=== PATIENT | male | born 1965 | race Caucasian/White ===

== ENCOUNTER 2017-12-15 11:20 | Inpatient (IN) | payer MEDICAID, OTHER ==
[~2017-12-15] VITALS: Ht 162.6 cm; Wt 55.3 kg
[~2017-12-15 11:20] MED LIST: CLOT15CR5 TP
[2017-12-15] MEDS ORDERED: ibuprofen tablet 400 MG TABLET PO ONE (12:40)
[2017-12-15] MEDS ORDERED: ondansetron 4mg rapidly disintigrating tab PO ONE (12:40)
[2017-12-15 13:01] LABS: BASOPHILS % (AUTO) 0.3 % (0-1); EOSINOPHILS # (AUTO) 0.1 X10'3 (0-0.9); EOSINOPHILS % (AUTO) 2.1 % (0-6); HEMATOCRIT 32.7 % (42.0-52.0); HEMOGLOBIN 11.6 g/dl (14.0-17.9); LYMPHOCYTES # (AUTO) 0.6 X10'3 (1.1-4.8); LYMPHOCYTES % (AUTO) 17.3 % (21-51); MEAN CORPUSCULAR HEMOGLOBIN 32.5 PG (27.0-31.0); MEAN CORPUSCULAR HGB CONC 35.6 % (33.0-36.5); MEAN CORPUSCULAR VOLUME 91.3 FL (78-98); MEAN PLATELET VOLUME 7.4 FL (7.4-10.4); MONOCYTES # (AUTO) 0.4 X10'3 (0-0.9); NEUTROPHILS # (AUTO) 2.3 X10'3 (1.8-7.7); NEUTROPHILS % (AUTO) 69.3 % (42-75); PLATELET COUNT 143 X10'3 (140-440); RED BLOOD COUNT 3.58 X10'6 (4.70-6.10); RED CELL DISTRIBUTION WIDTH 13.5 % (11.5-14.5); WHITE BLOOD COUNT 3.3 X10'3 (4.5-11.0)
[2017-12-15 13:23] LABS: ALANINE AMINOTRANSFERASE 110 U/L (12-78); ALBUMIN 2.6 G/DL (3.4-5.0); ALBUMIN/GLOBULIN RATIO 0.8 (1.1-1.5); ALKALINE PHOSPHATASE 144 IU/L (46-116); ANION GAP 3 (8-16); ASPARTATE AMINO TRANSFERASE 57 U/L (10-37); BILIRUBIN,TOTAL 0.6 MG/DL (0.1-1.0); BLOOD UREA NITROGEN 16 MG/DL (7-18); BUN/CREATININE RATIO 14.3 (5.4-32.0); CALCIUM 8.2 MG/DL (8.5-10.1); CHLORIDE 97 MMOL/L (99-107); CREATININE 1.12 MG/DL (0.60-1.10); LIPASE 681 U/L (73-393); POTASSIUM 3.9 MMOL/L (3.5-5.1); SODIUM 129 MMOL/L (135-145); TOTAL CARBON DIOXIDE 28.8 MMOL/L (24-32); eGFR 68 ML/MIN
[2017-12-15 13:31] LABS: GLUCOSE 570 MG/DL (70-104)
[2017-12-15] MEDS ORDERED: insulin regular, human 10 units/0.1 ml syringe IV ONE ×2 (13:40→14:30)
[2017-12-15] MEDS ORDERED: normal saline 1000ML IV soln IVB ONE ×3 (13:40→14:30)
[2017-12-15 13:56] LABS: ETHANOL < 0.010 GM/DL (0.0-0.010)
[2017-12-15] MEDS ORDERED: potassium Cl 20 mEq SR tablet PO STA (14:29)
[2017-12-15] MEDS ORDERED: bisacodyl 5mg tablet.DR PO ONE (14:30)
[2017-12-15] MEDS ORDERED: proMETHazine 25mg tablet PO ONE (14:30)
[2017-12-15 14:31] LABS: CLARITY,URINE CLEAR (Clear); COLOR,URINE YELLOW (Yellow); GLUCOSE, URINE >=1000 mg/dl (Neg); KETONES,URINE NEGATIVE (Neg); LEUKOCYTE ESTERASE ,URINE NEGATIVE (Neg); NITRITES, URINE NEGATIVE (Neg); OCCULT BLOOD,URINE NEGATIVE (Neg); PH,URINE 5.5 (4.8-8.0); PROTEIN,URINE NEGATIVE (Neg); UROBILINOGEN,URINE 0.2 E.U/dL (0.2-1.0)
[2017-12-15 14:33] LABS: UA COLLECTION TYPE CLN CATCH MIDSTREAM
[2017-12-15 14:40] LABS: BACTERIA,URINE NONE SEEN /HPF (Neg); RBC,URINE 0-2 /HPF (0-2); SQUAMOUS EPITHELIAL CELL,UR FEW /LPF (FEW); WBC,URINE 0-4 /HPF (0-4)
[2017-12-15 15:09] LABS: URINE AMPHETAMINE SCREEN NEGATIVE (Neg); URINE BARBITUATE SCREEN NEGATIVE (Neg); URINE BENZODIAZEPINES SCREEN NEGATIVE (Neg); URINE CANNABINOID SCREEN POSITIVE (Neg); URINE COCAINE SCREEN NEGATIVE (Neg); URINE METHADONE SCREEN NEGATIVE (Neg); URINE OPIATE SCREEN NEGATIVE (Neg); URINE PHENCYCLIDINE SCREEN NEGATIVE (Neg)
[2017-12-15] MEDS: normal saline 1000ml 1,000 ML IV SCH ×2 (15:21→21:35)
[2017-12-15] MEDS ORDERED: acetaminophen 650mg rectal suppository RC PRN (15:25)
[2017-12-15] MEDS ORDERED: ondansetron/PF 4mg/2ml inj IV PRN (15:25)
[2017-12-15] MEDS ORDERED: acetaminophen 325mg tablet PO PRN (15:25)
[2017-12-15] MEDS ORDERED: bisacodyl 10mg suppository rectal RC PRN (15:25)
[2017-12-15] MEDS ORDERED: diphenhydrAMINE 25mg capsule PO PRN (15:25)
[2017-12-15] MEDS ORDERED: metoclopramide 5 mg/ml inj IV PRN (15:25)
[2017-12-15] MEDS ORDERED: magnesium hydroxide 30ml (MOM) UD suspension PO PRN (15:25)
[2017-12-15] MEDS ORDERED: HYDROcodone/acetaminophen 5mg/325mg tablet PO PRN (15:25)
[2017-12-15] MEDS ORDERED: morphine 4 MG/ML inj SYRINge IV PRN (15:25)
[2017-12-15] MEDS ORDERED: HYDROmorphone inj. 0.5 MG/0.5 ML DISP.SYRIN IV PRN ×2 (15:25)
[2017-12-15] MEDS ORDERED: mag hydrox/Alum hydrox/simeth 30ml oral suspension PO PRN (15:25)
[2017-12-15] MEDS ORDERED: diphenhydrAMINE 50 mg/ml inj IV PRN (15:25)
[2017-12-15] MEDS ORDERED: dextrose 50%-water 50ml dispensing syringe IV PRN ×2 (15:35)
[2017-12-15] MEDS ORDERED: glucagon, human recombinant 1mg kit SUBCUT PRN (15:35)
[2017-12-15] MEDS ORDERED: MESSAGE TO PHARMACY PO ONE (15:35)
[2017-12-15] MEDS ORDERED: dextrose ORAL solution 15 GM/59 ML bottle PO PRN (15:35)
[2017-12-15 16:03] LABS: MAGNESIUM 1.7 MG/DL (1.5-2.4); PHOSPHORUS 2.8 MG/DL (2.3-4.5)
[2017-12-15] MEDS: morphine 4 MG/ML inj SYRINge IV PRN (17:19)
[2017-12-15] MEDS: docusate sod 100mg capsule PO SCH (20:00)
[2017-12-15] MEDS: pantoprazole 40 MG vial IV SCH (20:39)
[2017-12-15] MEDS: heparin, porcine 5000 units/ml vial SQ SCH (20:40)
[2017-12-15] MEDS ORDERED: temazepam 15mg capsule PO PRN (21:00)
[2017-12-15 21:05] VITALS: BP 137/73
[2017-12-16] VITALS: BP 128/69
[2017-12-16] MEDS: morphine 4 MG/ML inj SYRINge IV PRN ×4 (00:28→18:49)
[2017-12-16 05:34] LABS: BASOPHILS % (AUTO) 0.5 % (0-1); EOSINOPHILS # (AUTO) 0.1 X10'3 (0-0.9); EOSINOPHILS % (AUTO) 3.1 % (0-6); HEMATOCRIT 33.4 % (42.0-52.0); HEMOGLOBIN 11.5 g/dl (14.0-17.9); LYMPHOCYTES % (AUTO) 37.7 % (21-51); MEAN CORPUSCULAR HEMOGLOBIN 32.2 PG (27.0-31.0); MEAN CORPUSCULAR HGB CONC 34.5 % (33.0-36.5); MEAN CORPUSCULAR VOLUME 93.4 FL (78-98); MEAN PLATELET VOLUME 7.8 FL (7.4-10.4); MONOCYTES # (AUTO) 0.2 X10'3 (0-0.9); MONOCYTES % (AUTO) 8.2 % (2-12); NEUTROPHILS # (AUTO) 1.3 X10'3 (1.8-7.7); NEUTROPHILS % (AUTO) 50.5 % (42-75); PLATELET COUNT 114 X10'3 (140-440); RED BLOOD COUNT 3.58 X10'6 (4.70-6.10); RED CELL DISTRIBUTION WIDTH 13.6 % (11.5-14.5); WHITE BLOOD COUNT 2.6 X10'3 (4.5-11.0)
[2017-12-16] MEDS: HYDROcodone/acetaminophen 10/325mg tab PO PRN ×2 (05:43→14:49)
[2017-12-16 06:19] LABS: ALANINE AMINOTRANSFERASE 94 U/L (12-78); ALBUMIN 2.2 G/DL (3.4-5.0); ALBUMIN/GLOBULIN RATIO 0.7 (1.1-1.5); ALKALINE PHOSPHATASE 114 IU/L (46-116); ANION GAP 4 (8-16); ASPARTATE AMINO TRANSFERASE 58 U/L (10-37); BILIRUBIN,TOTAL 0.4 MG/DL (0.1-1.0); BLOOD UREA NITROGEN 9 MG/DL (7-18); BUN/CREATININE RATIO 13.2 (5.4-32.0); CALCIUM 7.9 MG/DL (8.5-10.1); CHLORIDE 110 MMOL/L (99-107); CHOL/HDL RATIO 4.8 (0.00-4.99); CHOLESTEROL 116 MG/DL (0-200); CREATININE 0.68 MG/DL (0.60-1.10); GLUCOSE 147 MG/DL (70-104); HDL CHOLESTEROL 24 MG/DL (35-60); LDL CHOLESTEROL 75 MG/DL (50-100); LIPASE 269 U/L (73-393); SODIUM 141 MMOL/L (135-145); TOTAL CARBON DIOXIDE 26.9 MMOL/L (24-32); TOTAL PROTEIN 5.3 G/DL (6.4-8.2); TRIGLYCERIDES 98 MG/DL (20-135); eGFR > 90 ML/MIN
[2017-12-16 06:31] LABS: ANISOCYTOSIS 1+; PLATELET ESTIMATE DECREASED; TOTAL CELLS COUNTED 100
[2017-12-16 07:00] VITALS: BP 149/82
[2017-12-16] MEDS: docusate sod 100mg capsule PO SCH ×2 (08:46→20:00)
[2017-12-16] MEDS: normal saline 1000ml 1,000 ML IV SCH ×2 (08:46→21:21)
[2017-12-16] MEDS: heparin, porcine 5000 units/ml vial SQ SCH ×2 (08:46→19:55)
[2017-12-16] MEDS: pantoprazole 40 MG vial IV SCH ×2 (08:46→19:55)
[2017-12-16 11:00] VITALS: BP 138/73
[2017-12-16] MEDS: lactulose 20gm/30ml cup PO SCH ×3 (12:26→19:55)
[2017-12-16] MEDS: insulin Lispro (HumaLOG) vial - multi-dose SQ SCH ×2 (13:59→18:48)
[2017-12-16 20:00] VITALS: BP 133/77
[2017-12-17] VITALS: BP 142/79
[2017-12-17] MEDS: morphine 4 MG/ML inj SYRINge IV PRN ×3 (00:07→18:51)
[2017-12-17] MEDS: HYDROcodone/acetaminophen 10/325mg tab PO PRN ×2 (01:50→23:05)
[2017-12-17] MEDS: lactulose 20gm/30ml cup PO SCH ×4 (02:00→20:00)
[2017-12-17] MEDS: normal saline 1000ml 1,000 ML IV SCH ×2 (04:27→14:43)
[2017-12-17 05:12] LABS: BASOPHILS % (AUTO) 0.6 % (0-1); EOSINOPHILS # (AUTO) 0.1 X10'3 (0-0.9); EOSINOPHILS % (AUTO) 2.4 % (0-6); HEMATOCRIT 36.2 % (42.0-52.0); HEMOGLOBIN 12.4 g/dl (14.0-17.9); LYMPHOCYTES % (AUTO) 25.4 % (21-51); MEAN CORPUSCULAR HEMOGLOBIN 32.2 PG (27.0-31.0); MEAN CORPUSCULAR HGB CONC 34.1 % (33.0-36.5); MEAN CORPUSCULAR VOLUME 94.4 FL (78-98); MEAN PLATELET VOLUME 8.3 FL (7.4-10.4); MONOCYTES # (AUTO) 0.3 X10'3 (0-0.9); MONOCYTES % (AUTO) 7.4 % (2-12); NEUTROPHILS # (AUTO) 2.6 X10'3 (1.8-7.7); NEUTROPHILS % (AUTO) 64.2 % (42-75); PLATELET COUNT 137 X10'3 (140-440); RED BLOOD COUNT 3.84 X10'6 (4.70-6.10); RED CELL DISTRIBUTION WIDTH 13.6 % (11.5-14.5)
[2017-12-17 06:21] LABS: ALANINE AMINOTRANSFERASE 98 U/L (12-78); ALBUMIN 2.3 G/DL (3.4-5.0); ALBUMIN/GLOBULIN RATIO 0.7 (1.1-1.5); ALKALINE PHOSPHATASE 117 IU/L (46-116); ANION GAP 6 (8-16); ASPARTATE AMINO TRANSFERASE 69 U/L (10-37); BILIRUBIN,TOTAL 0.3 MG/DL (0.1-1.0); BLOOD UREA NITROGEN 12 MG/DL (7-18); BUN/CREATININE RATIO 13.8 (5.4-32.0); CHLORIDE 104 MMOL/L (99-107); CREATININE 0.87 MG/DL (0.60-1.10); GLUCOSE 275 MG/DL (70-104); POTASSIUM 4.2 MMOL/L (3.5-5.1); SODIUM 134 MMOL/L (135-145); TOTAL CARBON DIOXIDE 23.6 MMOL/L (24-32); TOTAL PROTEIN 5.7 G/DL (6.4-8.2); eGFR > 90 ML/MIN
[2017-12-17 07:00] VITALS: BP 119/61
[2017-12-17] MEDS: heparin, porcine 5000 units/ml vial SQ SCH ×2 (07:41→19:00)
[2017-12-17] MEDS: docusate sod 100mg capsule PO SCH ×2 (07:41→20:00)
[2017-12-17] MEDS: pantoprazole 40 MG vial IV SCH ×2 (07:41→19:00)
[2017-12-17] MEDS ORDERED: NORMAL SALINE IV ONE (09:30)
[2017-12-17] MEDS ORDERED: SINCALIDE IV ONE (09:30)
[2017-12-17] MEDS: insulin Lispro (HumaLOG) vial - multi-dose SQ SCH ×3 (09:57→18:58)
[2017-12-17 11:00] VITALS: BP 136/64
[2017-12-17 19:00] VITALS: BP 170/89
[2017-12-18] VITALS: BP 149/85
[2017-12-18] MEDS: normal saline 1000ml 1,000 ML IV SCH ×3 (00:21→23:21)
[2017-12-18] MEDS: lactulose 20gm/30ml cup PO SCH ×4 (02:00→20:00)
[2017-12-18] MEDS: morphine 4 MG/ML inj SYRINge IV PRN ×2 (04:03→20:04)
[2017-12-18 06:09] LABS: BASOPHILS % (AUTO) 0.4 % (0-1); EOSINOPHILS # (AUTO) 0.1 X10'3 (0-0.9); EOSINOPHILS % (AUTO) 2.1 % (0-6); HEMATOCRIT 34.6 % (42.0-52.0); HEMOGLOBIN 11.7 g/dl (14.0-17.9); LYMPHOCYTES # (AUTO) 0.9 X10'3 (1.1-4.8); LYMPHOCYTES % (AUTO) 27.6 % (21-51); MEAN CORPUSCULAR HEMOGLOBIN 31.7 PG (27.0-31.0); MEAN CORPUSCULAR HGB CONC 33.9 % (33.0-36.5); MEAN CORPUSCULAR VOLUME 93.6 FL (78-98); MEAN PLATELET VOLUME 8.2 FL (7.4-10.4); MONOCYTES # (AUTO) 0.3 X10'3 (0-0.9); MONOCYTES % (AUTO) 8.4 % (2-12); NEUTROPHILS # (AUTO) 1.9 X10'3 (1.8-7.7); NEUTROPHILS % (AUTO) 61.5 % (42-75); PLATELET COUNT 100 X10'3 (140-440); WHITE BLOOD COUNT 3.1 X10'3 (4.5-11.0)
[2017-12-18 06:28] LABS: ALANINE AMINOTRANSFERASE 79 U/L (12-78); ALBUMIN 2.1 G/DL (3.4-5.0); ALBUMIN/GLOBULIN RATIO 0.7 (1.1-1.5); ALKALINE PHOSPHATASE 101 IU/L (46-116); ANION GAP 3 (8-16); ASPARTATE AMINO TRANSFERASE 56 U/L (10-37); BILIRUBIN,TOTAL 0.3 MG/DL (0.1-1.0); BLOOD UREA NITROGEN 12 MG/DL (7-18); BUN/CREATININE RATIO 15.2 (5.4-32.0); CHLORIDE 107 MMOL/L (99-107); CREATININE 0.79 MG/DL (0.60-1.10); GLUCOSE 156 MG/DL (70-104); POTASSIUM 3.8 MMOL/L (3.5-5.1); SODIUM 136 MMOL/L (135-145); TOTAL PROTEIN 5.3 G/DL (6.4-8.2); eGFR > 90 ML/MIN
[2017-12-18 07:00] VITALS: BP 135/80
[2017-12-18] MEDS: heparin, porcine 5000 units/ml vial SQ SCH ×2 (07:52→20:06)
[2017-12-18] MEDS: docusate sod 100mg capsule PO SCH ×2 (07:52→20:00)
[2017-12-18] MEDS: pantoprazole 40 MG vial IV SCH ×2 (07:54→20:06)
[2017-12-18] MEDS ORDERED: SINCALIDE IV ONE (09:00)
[2017-12-18] MEDS ORDERED: NORMAL SALINE IV ONE (09:00)
[2017-12-18] MEDS: insulin Lispro (HumaLOG) vial - multi-dose SQ SCH ×3 (09:37→21:27)
[2017-12-18 11:00] VITALS: BP 140/80
[2017-12-18] MEDS: HYDROcodone/acetaminophen 10/325mg tab PO PRN (17:43)
[2017-12-18 18:00] VITALS: BP 145/95
[2017-12-19] VITALS: BP 133/83
[2017-12-19] MEDS: HYDROmorphone 1 mg/ml syringe IV PRN ×2 (00:40→20:06)
[2017-12-19] MEDS: lactulose 20gm/30ml cup PO SCH ×4 (02:00→20:06)
[2017-12-19 04:33] LABS: BASOPHILS % (AUTO) 0.3 % (0-1); EOSINOPHILS # (AUTO) 0.1 X10'3 (0-0.9); EOSINOPHILS % (AUTO) 1.5 % (0-6); HEMATOCRIT 33.9 % (42.0-52.0); HEMOGLOBIN 11.6 g/dl (14.0-17.9); LYMPHOCYTES # (AUTO) 0.8 X10'3 (1.1-4.8); LYMPHOCYTES % (AUTO) 18.5 % (21-51); MEAN CORPUSCULAR HEMOGLOBIN 32.2 PG (27.0-31.0); MEAN CORPUSCULAR HGB CONC 34.2 % (33.0-36.5); MEAN CORPUSCULAR VOLUME 94.2 FL (78-98); MEAN PLATELET VOLUME 8.4 FL (7.4-10.4); MONOCYTES # (AUTO) 0.4 X10'3 (0-0.9); MONOCYTES % (AUTO) 8.6 % (2-12); NEUTROPHILS # (AUTO) 3.2 X10'3 (1.8-7.7); NEUTROPHILS % (AUTO) 71.1 % (42-75); PLATELET COUNT 115 X10'3 (140-440); RED CELL DISTRIBUTION WIDTH 13.9 % (11.5-14.5); WHITE BLOOD COUNT 4.6 X10'3 (4.5-11.0)
[2017-12-19] MEDS: normal saline 1000ml 1,000 ML IV SCH (04:35)
[2017-12-19 04:50] LABS: ALANINE AMINOTRANSFERASE 91 U/L (12-78); ALBUMIN 2.1 G/DL (3.4-5.0); ALBUMIN/GLOBULIN RATIO 0.7 (1.1-1.5); ALKALINE PHOSPHATASE 112 IU/L (46-116); ANION GAP 7 (8-16); ASPARTATE AMINO TRANSFERASE 73 U/L (10-37); BILIRUBIN,TOTAL 0.3 MG/DL (0.1-1.0); BLOOD UREA NITROGEN 15 MG/DL (7-18); BUN/CREATININE RATIO 14.2 (5.4-32.0); CALCIUM 7.9 MG/DL (8.5-10.1); CHLORIDE 105 MMOL/L (99-107); CREATININE 1.06 MG/DL (0.60-1.10); GLUCOSE 173 MG/DL (70-104); POTASSIUM 3.7 MMOL/L (3.5-5.1); SODIUM 138 MMOL/L (135-145); TOTAL CARBON DIOXIDE 26.1 MMOL/L (24-32); TOTAL PROTEIN 5.2 G/DL (6.4-8.2); eGFR 73 ML/MIN
[2017-12-19 07:00] VITALS: BP 125/70
[2017-12-19] MEDS: heparin, porcine 5000 units/ml vial SQ SCH ×2 (08:00→20:00)
[2017-12-19] MEDS: pantoprazole 40 MG vial IV SCH ×2 (08:00→20:11)
[2017-12-19] MEDS: docusate sod 100mg capsule PO SCH ×2 (08:02→20:00)
[2017-12-19 11:00] VITALS: BP 130/68
[2017-12-19] MEDS ORDERED: iohexol 300mg/ml 100ml inj. ONE (11:04)
[2017-12-19] MEDS: insulin Lispro (HumaLOG) vial - multi-dose SQ SCH ×2 (13:47→19:07)
[2017-12-19 18:00] VITALS: BP 130/72
[2017-12-19] MEDS ORDERED: nicotine 21mg patch - 24 hr TD ONE (18:00)
[2017-12-19] MEDS: dextrose ORAL solution 15 GM/59 ML bottle PO PRN (20:51)
[2017-12-20] VITALS: BP 152/84
[2017-12-20] MEDS: HYDROmorphone 1 mg/ml syringe IV PRN ×2 (01:00→20:23)
[2017-12-20] MEDS: lactulose 20gm/30ml cup PO SCH ×2 (02:00→08:00)
[2017-12-20 04:31] LABS: BASOPHILS % (AUTO) 0.3 % (0-1); EOSINOPHILS # (AUTO) 0.1 X10'3 (0-0.9); EOSINOPHILS % (AUTO) 2.1 % (0-6); HEMATOCRIT 35.4 % (42.0-52.0); LYMPHOCYTES % (AUTO) 20.8 % (21-51); MEAN CORPUSCULAR VOLUME 93.9 FL (78-98); MEAN PLATELET VOLUME 8.5 FL (7.4-10.4); MONOCYTES # (AUTO) 0.5 X10'3 (0-0.9); MONOCYTES % (AUTO) 9.6 % (2-12); NEUTROPHILS # (AUTO) 3.2 X10'3 (1.8-7.7); NEUTROPHILS % (AUTO) 67.2 % (42-75); PLATELET COUNT 107 X10'3 (140-440); RED BLOOD COUNT 3.77 X10'6 (4.70-6.10); RED CELL DISTRIBUTION WIDTH 13.6 % (11.5-14.5); WHITE BLOOD COUNT 4.8 X10'3 (4.5-11.0)
[2017-12-20 04:49] LABS: ALANINE AMINOTRANSFERASE 92 U/L (12-78); ALBUMIN 2.3 G/DL (3.4-5.0); ALBUMIN/GLOBULIN RATIO 0.7 (1.1-1.5); ALKALINE PHOSPHATASE 131 IU/L (46-116); ANION GAP 5 (8-16); ASPARTATE AMINO TRANSFERASE 76 U/L (10-37); BILIRUBIN,TOTAL 0.3 MG/DL (0.1-1.0); BLOOD UREA NITROGEN 15 MG/DL (7-18); BUN/CREATININE RATIO 16.1 (5.4-32.0); CALCIUM 8.6 MG/DL (8.5-10.1); CHLORIDE 102 MMOL/L (99-107); CREATININE 0.93 MG/DL (0.60-1.10); GLUCOSE 237 MG/DL (70-104); POTASSIUM 3.8 MMOL/L (3.5-5.1); SODIUM 134 MMOL/L (135-145); TOTAL CARBON DIOXIDE 27.1 MMOL/L (24-32); TOTAL PROTEIN 5.7 G/DL (6.4-8.2); eGFR 85 ML/MIN
[2017-12-20 07:30] VITALS: BP 139/75
[2017-12-20] MEDS: heparin, porcine 5000 units/ml vial SQ SCH ×2 (08:00→20:00)
[2017-12-20] MEDS: pantoprazole 40 MG vial IV SCH ×2 (08:25→20:06)
[2017-12-20] MEDS: docusate sod 100mg capsule PO SCH ×2 (08:26→20:07)
[2017-12-20] MEDS: HYDROcodone/acetaminophen 10/325mg tab PO PRN ×2 (08:26→15:53)
[2017-12-20] MEDS: insulin Lispro (HumaLOG) vial - multi-dose SQ SCH ×4 (08:42→21:07)
[2017-12-20] MEDS ORDERED: LIDOcaine 0.5% (5mg/ml) 50ml vial ONE (09:56)
[2017-12-20 10:05] VITALS: BP 151/87
[2017-12-20 10:17] VITALS: BP 144/88
[2017-12-20 11:50] VITALS: BP 130/71
[2017-12-20] MEDS: metroNIDAZOLE 500mg tablet PO SCH ×2 (12:26→16:57)
[2017-12-20] MEDS: nicotine 21mg patch - 24 hr TD SCH (16:57)
[2017-12-20 18:00] VITALS: BP 124/80
[2017-12-21] VITALS: BP 133/78
[2017-12-21] MEDS: metroNIDAZOLE 500mg tablet PO SCH ×3 (00:10→16:12)
[2017-12-21] MEDS: HYDROmorphone 1 mg/ml syringe IV PRN ×2 (00:20→04:53)
[2017-12-21 07:27] VITALS: BP 114/75
[2017-12-21] MEDS: heparin, porcine 5000 units/ml vial SQ SCH ×2 (08:00→19:35)
[2017-12-21] MEDS: docusate sod 100mg capsule PO SCH ×2 (08:16→19:28)
[2017-12-21] MEDS: pantoprazole 40 MG vial IV SCH ×2 (08:16→19:27)
[2017-12-21] MEDS: nicotine 21mg patch - 24 hr TD SCH (08:17)
[2017-12-21] MEDS: insulin Lispro (HumaLOG) vial - multi-dose SQ SCH ×2 (09:41→19:30)
[2017-12-21] MEDS ORDERED: oxyCODONE/APAP 5-325mg tablet PO PRN (11:15)
[2017-12-21 12:10] VITALS: BP 127/72
[2017-12-21] MEDS: dextrose ORAL solution 15 GM/59 ML bottle PO PRN (13:14)
[2017-12-21] MEDS: levoFLOXACIN-Levaquin 750MG/D5 150 ML IV SCH (13:21)
[2017-12-21 15:07] LABS: HIV ANTIBODY 1&2 RAPID NON-REACTIVE (Neg)
[2017-12-21] MEDS: traMADol 50MG tablet PO PRN (17:16)
[2017-12-21 20:00] VITALS: BP 132/66
[2017-12-22] VITALS: BP 141/82
[2017-12-22] MEDS: metroNIDAZOLE 500mg tablet PO SCH ×3 (00:06→14:13)
[2017-12-22] MEDS: traMADol 50MG tablet PO PRN ×2 (01:38→07:14)
[2017-12-22 04:27] LABS: BASOPHILS % (AUTO) 0.4 % (0-1); EOSINOPHILS # (AUTO) 0.1 X10'3 (0-0.9); EOSINOPHILS % (AUTO) 1.8 % (0-6); HEMATOCRIT 33.8 % (42.0-52.0); HEMOGLOBIN 11.6 g/dl (14.0-17.9); LYMPHOCYTES # (AUTO) 0.8 X10'3 (1.1-4.8); LYMPHOCYTES % (AUTO) 18.8 % (21-51); MEAN CORPUSCULAR HEMOGLOBIN 32.4 PG (27.0-31.0); MEAN CORPUSCULAR HGB CONC 34.3 % (33.0-36.5); MEAN CORPUSCULAR VOLUME 94.4 FL (78-98); MEAN PLATELET VOLUME 8.3 FL (7.4-10.4); MONOCYTES # (AUTO) 0.5 X10'3 (0-0.9); NEUTROPHILS # (AUTO) 2.7 X10'3 (1.8-7.7); PLATELET COUNT 117 X10'3 (140-440); RED BLOOD COUNT 3.58 X10'6 (4.70-6.10); RED CELL DISTRIBUTION WIDTH 14.1 % (11.5-14.5); WHITE BLOOD COUNT 4.1 X10'3 (4.5-11.0)
[2017-12-22 04:45] LABS: ALANINE AMINOTRANSFERASE 102 U/L (12-78); ALBUMIN 2.3 G/DL (3.4-5.0); ALBUMIN/GLOBULIN RATIO 0.7 (1.1-1.5); ALKALINE PHOSPHATASE 120 IU/L (46-116); ANION GAP 5 (8-16); ASPARTATE AMINO TRANSFERASE 76 U/L (10-37); BILIRUBIN,TOTAL 0.3 MG/DL (0.1-1.0); BLOOD UREA NITROGEN 21 MG/DL (7-18); BUN/CREATININE RATIO 21.9 (5.4-32.0); CALCIUM 8.4 MG/DL (8.5-10.1); CHLORIDE 101 MMOL/L (99-107); CREATININE 0.96 MG/DL (0.60-1.10); GLUCOSE 229 MG/DL (70-104); MAGNESIUM 1.3 MG/DL (1.5-2.4); PHOSPHORUS 3.7 MG/DL (2.3-4.5); POTASSIUM 4.1 MMOL/L (3.5-5.1); SODIUM 135 MMOL/L (135-145); TOTAL CARBON DIOXIDE 28.9 MMOL/L (24-32); TOTAL PROTEIN 5.6 G/DL (6.4-8.2); eGFR 82 ML/MIN
[2017-12-22] MEDS: heparin, porcine 5000 units/ml vial SQ SCH (08:00)
[2017-12-22] MEDS: nicotine 21mg patch - 24 hr TD SCH (08:13)
[2017-12-22] MEDS: levoFLOXACIN-Levaquin 750MG/D5 150 ML IV SCH (08:13)
[2017-12-22] MEDS: docusate sod 100mg capsule PO SCH (08:13)
[2017-12-22] MEDS: pantoprazole 40 MG vial IV SCH (08:14)
[2017-12-22] MEDS: insulin Lispro (HumaLOG) vial - multi-dose SQ SCH ×2 (09:07→13:15)
[2017-12-22 09:18] VITALS: BP 129/68
[2017-12-22 11:34] VITALS: BP 116/62
[2017-12-22] MEDS ORDERED: simethicone 80mg chew tab PO SCH (21:00)
[2017-12-23 11:11] LABS: HBSAG SCREEN Negative (Negative); HEP A AB, IGM Negative (Negative); HEP B CORE AB, IGM Negative (Negative); HEPATITIS C ANTIBODY >11.0 s/co ratio (0.0-0.9)
== END 2017-12-22 14:17 | disposition left against medical advice (07) | DRG 249 ==
LOC: ER 11:21 → ED HOLD 15:21 → SUR 3N 21:00
PROVIDERS: ADMIT Family Medicine; ATTEND Family Medicine
PROC: 0W9G3ZZ Drainage of Peritoneal Cavity, Percutaneous Approach (ICD-10-PCS; principal; 2017-12-20)
DX: K52.9 Noninfective gastroenteritis and colitis, unspecified (principal); K70.31 Alcoholic cirrhosis of liver with ascites; E11.65 Type 2 diabetes mellitus with hyperglycemia; E87.1 Hypo-osmolality and hyponatremia; K86.1 Other chronic pancreatitis; E86.0 Dehydration; F31.9 Bipolar disorder, unspecified; D72.819 Decreased white blood cell count, unspecified; B19.20 Unspecified viral hepatitis C without hepatic coma; F15.10 Other stimulant abuse, uncomplicated; Z53.21 Procedure and treatment not carried out due to patient leaving prior to being seen by health care provider; R91.1 Solitary pulmonary nodule; F10.10 Alcohol abuse, uncomplicated; F17.200 Nicotine dependence, unspecified, uncomplicated; Z88.5 Allergy status to narcotic agent; Z90.49 Acquired absence of other specified parts of digestive tract; Z71.41 Alcohol abuse counseling and surveillance of alcoholic; Z71.6 Tobacco abuse counseling; D63.8 Anemia in other chronic diseases classified elsewhere
CPT/HCPCS: 36415; 49083; 71250; 74018; 74176; 74177; 76700; 78226; 80053; 80061; 80305; 80320; 81001; 82948; 83036; 83690; 83735; 83880; 84100; 84484; 85025; 86703; 86705; 86706; 86709; 86803; 87040; 87070; 87340; 96361; 96374; 96376; 99285; A6212; A9537; C9113; J1170; J1644; J1815; J1956; J2001; J2270; J2405; J2805; J3490; J7030; J7040; Q0169; Q9967

== ENCOUNTER 2018-01-08 21:02 | Emergency (ER) | payer MEDICAID ==
[~2018-01-08] VITALS: Ht 162.6 cm; Wt 60.5 kg
[2018-01-08] MEDS ORDERED: albuterol 2.5 MG/3 ML nebule NEB ONE (23:15)
[2018-01-08] MEDS ORDERED: AZIT-63 PO (23:29)
[2018-01-08] MEDS ORDERED: IBUP-1984 PO (23:29)
[2018-01-08] MEDS ORDERED: ALBU8.5H8 INH (23:29)
[2018-01-08] MEDS ORDERED: HYDROcodone/acetaminophen 10/325mg tab PO ONE (23:35)
[2018-01-08] MEDS ORDERED: azithromycin 250mg tablet PO ONE (23:35)
[2018-01-08 23:51] VITALS: BP 116/63
== END 2018-01-08 23:53 | disposition home or self-care (01) ==
LOC: ER 21:02
DX: J18.9 Pneumonia, unspecified organism (principal); E11.40 Type 2 diabetes mellitus with diabetic neuropathy, unspecified; Z90.49 Acquired absence of other specified parts of digestive tract; Z88.5 Allergy status to narcotic agent; Z79.899 Other long term (current) drug therapy
CPT/HCPCS: 71046; 82948; 94640; 94760; 99284

== ENCOUNTER 2018-01-15 16:16 | Emergency (ER) | payer MEDICAID ==
[~2018-01-15] VITALS: Ht 162.6 cm; Wt 59.0 kg
[~2018-01-15 16:16] MED LIST changes: +ALBU8.5H8 INH; +AZIT-63 PO; +IBUP-1984 PO
[2018-01-15 16:53] LABS: CLARITY,URINE Clear (Clear); COLOR,URINE Yellow (Yellow); GLUCOSE, URINE >=1000 mg/dl (Neg); KETONES,URINE Negative (Neg); LEUKOCYTE ESTERASE ,URINE Negative (Neg); NITRITES, URINE Negative (Neg); OCCULT BLOOD,URINE Negative (Neg); PROTEIN,URINE Trace mg/dl (Neg)
[2018-01-15 16:56] LABS: URINE AMPHETAMINE SCREEN POSITIVE (Neg); URINE BARBITUATE SCREEN NEGATIVE (Neg); URINE BENZODIAZEPINES SCREEN NEGATIVE (Neg); URINE CANNABINOID SCREEN POSITIVE (Neg); URINE COCAINE SCREEN NEGATIVE (Neg); URINE METHADONE SCREEN NEGATIVE (Neg); URINE OPIATE SCREEN NEGATIVE (Neg); URINE PHENCYCLIDINE SCREEN NEGATIVE (Neg)
[2018-01-15 17:01] LABS: UA COLLECTION TYPE VOIDED
[2018-01-15 17:03] LABS: BACTERIA,URINE NONE SEEN /HPF (Neg); RBC,URINE NONE SEEN /HPF (0-2); SQUAMOUS EPITHELIAL CELL,UR FEW /LPF (FEW); WBC,URINE NONE SEEN /HPF (0-4)
[2018-01-15 17:14] LABS: BASOPHILS % (AUTO) 0.6 % (0-1); EOSINOPHILS # (AUTO) 0.1 X10'3 (0-0.9); EOSINOPHILS % (AUTO) 1.8 % (0-6); HEMATOCRIT 34.9 % (42.0-52.0); HEMOGLOBIN 12.1 g/dl (14.0-17.9); LYMPHOCYTES # (AUTO) 0.6 X10'3 (1.1-4.8); MEAN CORPUSCULAR HEMOGLOBIN 32.2 PG (27.0-31.0); MEAN CORPUSCULAR HGB CONC 34.8 % (33.0-36.5); MEAN CORPUSCULAR VOLUME 92.7 FL (78-98); MEAN PLATELET VOLUME 7.6 FL (7.4-10.4); MONOCYTES # (AUTO) 0.3 X10'3 (0-0.9); MONOCYTES % (AUTO) 9.5 % (2-12); NEUTROPHILS # (AUTO) 2.6 X10'3 (1.8-7.7); NEUTROPHILS % (AUTO) 72.1 % (42-75); PLATELET COUNT 140 X10'3 (140-440); RED BLOOD COUNT 3.76 X10'6 (4.70-6.10); RED CELL DISTRIBUTION WIDTH 13.7 % (11.5-14.5); WHITE BLOOD COUNT 3.6 X10'3 (4.5-11.0)
[2018-01-15] MEDS ORDERED: insulin regular, human 10 units/0.1 ml syringe SQ ONE (17:15)
[2018-01-15 17:33] LABS: ALANINE AMINOTRANSFERASE 144 U/L (12-78); ALBUMIN 2.8 G/DL (3.4-5.0); ALBUMIN/GLOBULIN RATIO 0.7 (1.1-1.5); ALKALINE PHOSPHATASE 183 IU/L (46-116); ANION GAP 9 (8-16); ASPARTATE AMINO TRANSFERASE 117 U/L (10-37); BILIRUBIN,TOTAL 0.6 MG/DL (0.1-1.0); BLOOD UREA NITROGEN 9 MG/DL (7-18); BUN/CREATININE RATIO 9.9 (5.4-32.0); CALCIUM 8.4 MG/DL (8.5-10.1); CHLORIDE 98 MMOL/L (99-107); CREATININE 0.91 MG/DL (0.60-1.10); GLUCOSE 423 MG/DL (70-104); POTASSIUM 3.7 MMOL/L (3.5-5.1); SODIUM 132 MMOL/L (135-145); TOTAL CARBON DIOXIDE 25.3 MMOL/L (24-32); TOTAL PROTEIN 6.6 G/DL (6.4-8.2); eGFR 87 ML/MIN
[2018-01-15 17:34] LABS: ETHANOL < 0.010 GM/DL (0.0-0.010)
[2018-01-15] MEDS ORDERED: metFORMIN 500mg tablet PO ONE (18:15)
[2018-01-15] MEDS ORDERED: glucagon, human recombinant 1mg kit SUBCUT PRN (19:25)
[2018-01-15] MEDS ORDERED: MESSAGE TO PHARMACY PO ONE (19:25)
[2018-01-15] MEDS ORDERED: dextrose ORAL solution 15 GM/59 ML bottle PO PRN ×2 (19:25)
[2018-01-15] MEDS ORDERED: insulin Lispro (HumaLOG) vial - multi-dose SQ SCH (19:25)
[2018-01-15] MEDS ORDERED: dextrose 50%-water 50ml dispensing syringe IV PRN ×2 (19:25)
[2018-01-15] MEDS ORDERED: GABA-534 PO (19:47)
[2018-01-15] MEDS ORDERED: OMEP20TA23 PO (19:47)
[2018-01-15] MEDS ORDERED: LISI-604 PO (19:47)
[2018-01-15] MEDS ORDERED: ALBU8HFA PO (19:54)
[2018-01-15] MEDS ORDERED: IBUP-1984 PO (19:54)
[2018-01-15] MEDS ORDERED: AZIT250T PO (19:54)
[2018-01-15] MEDS ORDERED: albuterol 2.5 MG/3 ML nebule NEB PRN (20:40)
[2018-01-15] MEDS ORDERED: insulin glargine (Lantus) pen - multi-dose SQ SCH (21:00)
[2018-01-16] MEDS: gabapentin 400mg capsule PO SCH ×3 (01:20→17:09)
[2018-01-16] MEDS: pantoprazole 40mg Tablet.DR PO SCH (08:01)
[2018-01-16] MEDS: insulin glargine (Lantus) pen - multi-dose SQ SCH ×2 (09:25→20:17)
[2018-01-16] MEDS: ibuprofen tablet 400 MG TABLET PO PRN (09:27)
[2018-01-16] MEDS: lisinopril 5mg tablet PO SCH (09:27)
[2018-01-16] MEDS: azithromycin 250mg tablet PO SCH ×2 (09:37→10:06)
[2018-01-17] MEDS: lisinopril 5mg tablet PO SCH (08:25)
[2018-01-17] MEDS: pantoprazole 40mg Tablet.DR PO SCH (08:25)
[2018-01-17] MEDS: gabapentin 400mg capsule PO SCH ×4 (08:25→22:56)
[2018-01-17] MEDS ORDERED: azithromycin 250mg tablet PO ONE (08:35)
[2018-01-17] MEDS: ibuprofen tablet 400 MG TABLET PO PRN (19:48)
[2018-01-17] MEDS: insulin glargine (Lantus) pen - multi-dose SQ SCH (19:56)
[2018-01-17] MEDS ORDERED: insulin Lispro (HumaLOG) vial - multi-dose SQ SCH (21:55)
[2018-01-17] MEDS ORDERED: MESSAGE TO PHARMACY PO ONE (21:55)
[2018-01-17] MEDS ORDERED: Melatonin 3mg tablet PO SCH (22:00)
[2018-01-18 05:51] VITALS: BP 140/80
[2018-01-18] MEDS: azithromycin 250mg tablet PO SCH (08:30)
[2018-01-18] MEDS: lisinopril 5mg tablet PO SCH (08:30)
[2018-01-18] MEDS: gabapentin 400mg capsule PO SCH (08:30)
[2018-01-18] MEDS: pantoprazole 40mg Tablet.DR PO SCH (08:31)
[2018-01-18] MEDS: insulin glargine (Lantus) pen - multi-dose SQ SCH (08:34)
== END 2018-01-18 14:37 | disposition home or self-care (01) ==
LOC: ER 16:17
DX: R45.851 Suicidal ideations (principal); F31.9 Bipolar disorder, unspecified; F15.10 Other stimulant abuse, uncomplicated; E11.9 Type 2 diabetes mellitus without complications; Z98.890 Other specified postprocedural states; Z90.49 Acquired absence of other specified parts of digestive tract; Z88.5 Allergy status to narcotic agent; Z79.899 Other long term (current) drug therapy; Z79.4 Long term (current) use of insulin
CPT/HCPCS: 36415; 80053; 80305; 80320; 81001; 82948; 84443; 85025; 96372; 99285; J1815